=== PATIENT | female | born 1985 | race Caucasian/White ===

== ENCOUNTER 2017-08-14 08:10 | Inpatient (IN) | payer OTHER ==
[~2017-08-14] VITALS: Ht 152.4 cm; Wt 93.4 kg
[2017-08-14] MEDS ORDERED: NACL 0.9% 1,000 ML IV SCH (08:21)
[2017-08-14 08:23] VITALS: BP 116/58
[2017-08-14] MEDS ORDERED: ONDANSETRON 4 MG/2 ML VIAL IVP ONE ×2 (08:25→11:15)
--- NOTE | 2017-08-14 08:40 | NUR ---
PATIENT PRESENTS TO ED WITH C/O MID ABDOMINAL SHARP/BURNING PAIN X YESTERDAY AFTER EATING A HAMBURGER +N/V +CONSTIPATION; PAIN RADIATES TO BACK ADMITS HAD BEEN EATING HIGH FATTY FOODS SEEN HERE AUG 14, SAME COMPLAINT DX GASTRITIS RX OMEPRAZOLE HX---DENIES RX---OMEPRAZOLE .DENIES DIARRHEA; SKIN IS PINK/WARM/DRY; AAOX4 WITH EVEN AND STEADY GAIT; LUNGS CLEAR BL; HR EVEN AND REGULAR; PT DENIES ANY FEVER, CP, SOB, OR COUGH AT THIS TIME; PATIENT STATES PAIN OF 8/10 AT THIS TIME; VSS; PATIENT POSITIONED FOR COMFORT; HOB ELEVATED; BEDRAILS UP X2; BED DOWN. ER MD MADE AWARE OF PT STATUS.
[2017-08-14 08:49] LABS: BASOPHILS # (AUTO) 0.2 K/uL (0.00-0.22); BASOPHILS % (AUTO) 1.4 % (0.0-2.0); EOSINOPHILS # (AUTO) 0.1 K/uL (0-0.4); EOSINOPHILS % (AUTO) 0.5 % (0.0-4.0); HEMATOCRIT 41.8 % (36-48); HEMOGLOBIN 13.7 g/dL (12.0-16.0); LYMPHOCYTES % (AUTO) 8.1 % (20.5-51.1); MEAN CORPUSCULAR HEMOGLOBIN 30 pg (27-31); MEAN CORPUSCULAR HGB CONC 33 g/dL (33-37); MEAN CORPUSCULAR VOLUME 90 fL (80-94); MONOCYTES # (AUTO) 0.7 K/uL (0.8-1.0); MONOCYTES % (AUTO) 5.8 % (1.7-9.3); NEUTROPHILS # (AUTO) 10.8 K/uL (1.8-7.7); NEUTROPHILS % (AUTO) 84.2 % (42.2-75.2); PLATELET COUNT (AUTO) 235 K/uL (140-450); RED BLOOD CELL COUNT(AUTO) 4.63 MIL/uL (4.20-5.40); RED CELL DISTRIBUTION WIDTH 13.5 % (11.6-13.7); WHITE BLOOD COUNT (AUTO) 12.8 K/uL (4.8-10.8)
[2017-08-14 08:58] LABS: ANION GAP 13.2 (8-16); CARBON DIOXIDE 24.7 mmol/L (21-32); CREATININE 0.8 mg/dL (0.6-1.3); POTASSIUM 3.9 mmol/L (3.5-5.1)
[2017-08-14 09:04] LABS: ALBUMIN 3.9 g/dL (3.4-5.0); TOTAL BILIRUBIN 0.6 mg/dL (0.0-1.0)
--- NOTE | 2017-08-14 09:15 | NUR ---
DR HALL AT BEDSIDE UPDATING AAO PT WITH AT BEDSIDE, "FEELING BETTER LESS ABD PAIN 03/15", WILL CONTINUE TO MONITOR
[2017-08-14 09:29] LABS: APPEARANCE,URINE HAZY (CLEAR); BILIRUBIN,URINE NEGATIVE (NEGATIVE); BLOOD, URINE NEGATIVE (NEGATIVE); COLOR,URINE YELLOW (YELLOW); LEUKOCYTE ESTERASE ,URINE NEGATIVE (NEGATIVE); NITRITE, URINE NEGATIVE (NEGATIVE); UGLUCOSE NEGATIVE (NEGATIVE)
[2017-08-14] MEDS ORDERED: NACL 0.9% 1,000 ML IV ONE (09:45)
[2017-08-14] MEDS ORDERED: MORPHINE SULFATE 4 MG/ML SYR IVP ONE (09:45)
[2017-08-14] MEDS ORDERED: KETOROLAC 30 MG/ML VIAL IVP ONE (09:45)
[2017-08-14] MEDS ORDERED: LANS15EC28 PO (10:09)
--- NOTE | 2017-08-14 10:20 | NUR ---
MANAGER CREDIT RISK AT BEDSIDE
--- NOTE | 2017-08-14 10:36 | NUR ---
PT TAKEN OFF THE UNIT FOR CT SCAN VIA WHEEL CHAIR BY BIOLOGICAL SCIENCE AIDE JASON
--- NOTE | 2017-08-14 10:50 | NUR ---
PT BACK FROM CT, PLACED BACK ON MONITOR, WAITING FOR ADMISSION, WILL CONTINUE TO MONITOR
--- NOTE | 2017-08-14 11:00 | NUR ---
RECEIVED REPORT FROM ER NURSE. WILL GET ROOM READY READY AND AWAIT PT'S ARRIVAL.
--- NOTE | 2017-08-14 11:22 | NUR ---
RN UNAVAILABLE FOR REPORT AT THIS TIME
--- NOTE | 2017-08-14 11:33 | NUR ---
Patient will be admitted to care of DR KRAUS. Admited to M/S. Will go to room 112A. Belongings list completed. Report to SKY WILSON.
--- NOTE | 2017-08-14 11:49 | NUR ---
PT INFORMED OF PENDING ADMISSION, AWAITING ADMITTING ORDERS
--- NOTE | 2017-08-14 12:09 | NUR ---
Patient will be admitted to care of DR KRAUS. Admited to M/S. Will go to room 112A. Belongings list completed. Report to SKY WILSON.
[2017-08-14] MEDS ORDERED: MORPHINE SULFATE 4 MG/ML SYR IVP PRN (12:10)
[2017-08-14] MEDS ORDERED: LORazepam 2 MG/ML VIAL IVP PRN (12:10)
--- NOTE | 2017-08-14 12:10 | NUR ---
PT ARRIVED WITH 2 ER NURSES. PT IS AMBULATORY. AMBULATED FROM GURNEY TO BED. PT IS AWAKE AND ORIENTED. I INTRODUCED MYSELF AND UPDATE THE BOARD. PT IS ACCOMPANIED BY SPOUSE. ADMINISTERED NEW ID BAND, ALLERGY BAND. ADVISED PT SHE IS NPO AT THIS TIME. DENIES PAIN. V/S WITHIN NORMAL LIMITS. IV ON R AC 20G NS AT 250ML. PER ER NURSE, THIS IS THE SECOND BAG. PT IS THIRSTY. OFFERED HER SOME ICE CHIPS. LAST BM WAS TODAY. CT SHOWED CHOLELITHIASIS. LIPASE AND WBC ELEVATED. WILL AWAIT ORDERS. WILL START ADMISSION.
[2017-08-14 12:30] VITALS: BP 114/71
[2017-08-14] MEDS: DEXT 5% /NACL 0.9% 1,000 ML IV SCH ×2 (13:27→22:10)
--- NOTE | 2017-08-14 14:16 | NUR ---
CM NOTE INITIAL REVIEW FAXED TO [facility] [phone] ANEL AMINA # [phone]
[2017-08-14] MEDS: ONDANSETRON 4 MG/2 ML VIAL IVP PRN (15:04)
--- NOTE | 2017-08-14 15:05 | NUR ---
PT WAS NAUSEATED. VOMITED. ADMINISTERED ZOFRAN. PT TOLERATED WELL. WILL CONTINUE TO MONITOR PT.
[2017-08-14 16:00] VITALS: BP 112/75
--- NOTE | 2017-08-14 16:00 | NUR ---
V/S WITHIN NORMAL RANGE. NO MORE NAUSEA. NO MORE VOMITING. PT WANTS TO SLEEP. WILL CONTINUE TO MONITOR PT.
--- NOTE | 2017-08-14 17:34 | NUR ---
PT SLEEPING SOUNDLY. NO SIGNS OF DISTRESS. WILL CONTINUE TO MONITOR PT.
--- NOTE | 2017-08-14 18:00 | NUR ---
DR. GOMEZ CAME BY AND SAW PT. PT TO HAVE SURGERY TOMORROW MORNING AT 0730. CONSENT SIGNED AND IN CHART. ORDERED FULL LIQ DIET, NPO AFTER MIDNIGHT.
--- NOTE | 2017-08-14 18:20 | NUR ---
STARTED A NEW IV ON R HAND 22G. 1 ATTEMPT. PT TOLERATED WELL.
--- NOTE | 2017-08-14 18:56 | NUR ---
PT EATING HER FULL LIQUID DIET TRAY. FAMILY AT BEDSIDE. WILL CONTINUE TO MONITOR PT.
--- NOTE | 2017-08-14 19:10 | NUR ---
ENDORSED PT TO THE MONORAIL HELPER NURSE AT BEDSIDE FOR CONTINUITY OF CARE. PT IS VISITING WITH FAMILY. PT IN STABLE CONDITION.
--- NOTE | 2017-08-14 19:11 | NUR ---
RECEIVED BEDSIDE REPORT FROM DAY SHIFT NURSE, KATIE RN, PT RESTING, NO DISTRESS NOTED, AAOX4, IV TO THE R HAND 22G RUNNING D5NS @100ML/HR, PT REPORTED HAVING NO PAIN AND NAUSEA AT THIS MOMENT, FAMILY BY BEDSIDE, ALL SAFETY PRECAUTION MET, INITIAL ASSESSMENT DONE, PT RESTING, CALL LIGHT WITHIN REACH, WILL CONTINUE TO MONITOR.
--- NOTE | 2017-08-14 20:45 | NUR ---
WALKED PT TO THE RESTROOM AND BACK TO BED, PT TOLERATED WELL, REPORTED HAVING NO PAIN AND NAUSEA CURRENTLY. CALL LIGHT WITHIN REACH, WILL CONTINUE TO MONITOR.
[2017-08-15] VITALS (9 sets, daily range): BP systolic 96–115; BP diastolic 53–70
--- NOTE | 2017-08-15 00:05 | NUR ---
PT SLEEPING, NO DISTRESS NOTED, V/S TAKEN, PT STABLE, CALL LIGHT WITHIN REACH, WILL CONTINUE TO MONITOR.
[2017-08-15] MEDS: DEXT 5% /NACL 0.9% 1,000 ML IV SCH ×2 (01:45→08:10)
--- NOTE | 2017-08-15 02:00 | NUR ---
PT AWAKE. MADE AWARE OF THE NPO STATUS FOR SURGERY THIS AM . VERBALIZED UNDERSTANDING.
--- NOTE | 2017-08-15 05:10 | NUR ---
ASSIST PT TO SHOWER, PT TOLERATED WELL, PT BACK IN ROOM RESTING, NO DISTRESS NOTED, BRUSHING TEETH, CALL LIGHT WITHIN REACH, WILL CONTINUE TO MONITOR.
[2017-08-15 06:40] LABS: BASOPHILS # (AUTO) 0.2 K/uL (0.00-0.22); BASOPHILS % (AUTO) 2.8 % (0.0-2.0); EOSINOPHILS # (AUTO) 0.1 K/uL (0-0.4); EOSINOPHILS % (AUTO) 1.1 % (0.0-4.0); HEMATOCRIT 35.7 % (36-48); HEMOGLOBIN 11.8 g/dL (12.0-16.0); LYMPHOCYTES # (AUTO) 1.9 K/uL (2.5-16.5); LYMPHOCYTES % (AUTO) 27.2 % (20.5-51.1); MEAN CORPUSCULAR HEMOGLOBIN 30 pg (27-31); MEAN CORPUSCULAR HGB CONC 33 g/dL (33-37); MEAN CORPUSCULAR VOLUME 91 fL (80-94); MONOCYTES # (AUTO) 0.5 K/uL (0.8-1.0); MONOCYTES % (AUTO) 6.5 % (1.7-9.3); NEUTROPHILS # (AUTO) 4.3 K/uL (1.8-7.7); NEUTROPHILS % (AUTO) 62.4 % (42.2-75.2); PLATELET COUNT (AUTO) 196 K/uL (140-450); RED BLOOD CELL COUNT(AUTO) 3.91 MIL/uL (4.20-5.40); RED CELL DISTRIBUTION WIDTH 13.5 % (11.6-13.7)
[2017-08-15 06:59] LABS: ALBUMIN 3.1 g/dL (3.4-5.0); ANION GAP 10.7 (8-16); CREATININE 0.6 mg/dL (0.6-1.3); MAGNESIUM 1.8 mg/dL (1.8-2.4); POTASSIUM 3.7 mmol/L (3.5-5.1); TOTAL BILIRUBIN 0.6 mg/dL (0.0-1.0)
[2017-08-15 07:03] LABS: PROTHROMBIN TIME 11.1 secs (10.8-13.4)
--- NOTE | 2017-08-15 07:07 | NUR ---
PT PICKED UP BY WINDY TO OR, PT STABLE, NO DISTRESS NOTED.
--- NOTE | 2017-08-15 07:10 | NUR ---
ENDORSED PT TO DAY SHIFT NURSE BY BEDSIDE, PT PICKED UP TO GO TO OR. PT STABLE NO DISTRESS NOTED.
--- NOTE | 2017-08-15 07:11 | NUR ---
RECEIVE REPORT FROM THE COMPLAINTS COORDINATOR NURSE FOR CONTINUITY OF CARE. PT IS ALREADY OFF UNIT FOR PROCEDURE. WILL AWAIT HER RETURN.
[2017-08-15] MEDS ORDERED: DEXAMETHASONE 4 MG/ML VIAL ONE (07:18)
[2017-08-15] MEDS ORDERED: ROCURONIUM 50 MG/5 ML VIAL IV ONE (07:18)
[2017-08-15] MEDS ORDERED: SUCCINYLCHOLINE CHLORIDE 200 MG/10 ML VIAL IVP ONE (07:18)
[2017-08-15] MEDS ORDERED: LIDOCAINE 2% 100 MG/5 ML SYR IVP ONE (07:18)
[2017-08-15] MEDS ORDERED: ONDANSETRON 4 MG/2 ML VIAL ONE ×2 (07:18→09:44)
[2017-08-15] MEDS ORDERED: PROPOFOL 200 MG/20 ML VIAL IV ONE (07:18)
[2017-08-15] MEDS ORDERED: DESFLURANE 240 ML BTL INH ONE (07:18)
[2017-08-15] MEDS ORDERED: MIDAZOLAM 2 MG/2 ML VIAL ONE (07:33)
[2017-08-15] MEDS ORDERED: fentaNYL 0.05 MG/ML VIAL ONE (07:34)
[2017-08-15] MEDS ORDERED: ceFAZolin 1,000 MG VIAL ONE (07:37)
[2017-08-15] MEDS ORDERED: BUPIVACAINE-MPF 0.25% 30 ML VIAL INJ ONE (07:48)
[2017-08-15] MEDS ORDERED: ONDANSETRON 4 MG/2 ML VIAL IVP PRN (07:55)
[2017-08-15] MEDS ORDERED: ENOXAPARIN 40 MG/0.4 ML SYR SUBQ SCH (09:00)
[2017-08-15] MEDS: HYDROmorphone 1 MG/ML AMP IVP PRN ×4 (09:05→09:35)
--- NOTE | 2017-08-15 09:05 | NUR ---
PATIENT HAS BEEN SCREENED AND CATEGORIZED HIGH NUTRITION RISK. PATIENT WILL BE SEEN WITHIN 1-2 DAYS OF ADMISSION. 08/15/17-08/16/[address]
[2017-08-15] MEDS ORDERED: HYDROmorphone PFS 2 MG/ML SYR ONE (09:13)
--- NOTE | 2017-08-15 09:45 | NUR ---
PT ARRIVED ON THE UNIT BACK FROM HER PROCEDURE. PER O/R NURSE, PT DID WELL. MARY PANDYA, 4 INCISIONS ON ABD. GOT ALL HER PAIN MEDS AT 0930 INCLUDING NAUSEA MED. PAIN IS TOLERABLE BUT STILL NAUSEATED. PAGED DR KRAUS ABOUT ANOTHER NAUSEA MED. WILL START POST OP V/S.
--- NOTE | 2017-08-15 10:09 | NUR ---
CM NOTE CONCURRENT REVIEW FAXED TO [facility] [phone] CM MAYRA # [phone]
[2017-08-15] MEDS ORDERED: METOCLOPRAMIDE 10 MG/2 ML INJ VIAL IVP PRN (10:55)
--- NOTE | 2017-08-15 11:30 | NUR ---
PT FAMILY VISITING. PT STILL NAUSEATED. ADMINISTERED REGLAN THAT DR. KRAUS HAD ORDERED. REQUESTED PAIN MED WELL. GAVE MORPHINE. PT TOLERATED WELL. WILL CONTINUE TO MONITOR PT.
--- NOTE | 2017-08-15 12:12 | NUR ---
AMBULATED TO THE BATHROOM. VOIDED. BECAME NAUSEATED. VOMITED. PT BACK IN BED. SPOUSE AT BEDSIDE. LUNCH IS HERE. WILL TRY SOME CRACKERS AND JUICE. WILL CONTINUE TO MONITOR PT.
[2017-08-15] MEDS ORDERED: ONDA4TAB PO (14:07)
[2017-08-15] MEDS ORDERED: ACET-2869 PO (15:07)
--- NOTE | 2017-08-15 15:37 | NUR ---
PT RESTING COMFORTABLY. NO SIGNS OF DISTRESS. WILL CONTINUE TO MONITOR PT.
[2017-08-15] MEDS: ONDANSETRON 4 MG/2 ML VIAL IVP PRN (16:18)
--- NOTE | 2017-08-15 17:20 | NUR ---
DC INSTRUCTIONS GIVEN. PT VERBALIZED UNDERSTANDING. REMOVED IV, CANNULA INTACT. NO BLEEDING NOTED. REMOVED ID BANDS. CHECKED THE DRESSINGS ON THE INCISIONAL SITE, 4 IN ALL. NO BLEEDING OR DRAINAGE NOTED. IT IS DRY AND INTACT. NO PICTURES TAKEN D/T BEING LESS THAN 24 HOURS. WOUND CARE INSTRUCTIONS GIVEN. PT TO GET DRESSED AND GATHER HER PERSONAL BELONGINGS. WILL LET ME KNOW WHEN SHE IS READY TO LEAVE. WILL HAVE WHEELCHAIR READY.
--- NOTE | 2017-08-15 17:40 | NUR ---
WHEELED PT OUT TO THE LOBBY TO THE CAR. WAITING IN THE CAR. PT IN STABLE CONDITION.
== END 2017-08-15 17:40 | disposition home or self-care (01) | DRG 263 ==
LOC: MED 08:10 → MTU 12:11
PROVIDERS: ADMIT Hospitalist; ATTEND Hospitalist
PROC: 0FT44ZZ Resection of Gallbladder, Percutaneous Endoscopic Approach (ICD-10-PCS; principal; 2017-08-15 07:30)
DX: K85.10 Biliary acute pancreatitis without necrosis or infection (principal); Z68.41 Body mass index [BMI] 40.0-44.9, adult; K80.20 Calculus of gallbladder without cholecystitis without obstruction; E66.01 Morbid (severe) obesity due to excess calories; E78.5 Hyperlipidemia, unspecified; I25.10 Atherosclerotic heart disease of native coronary artery without angina pectoris; Z88.5 Allergy status to narcotic agent; Z88.6 Allergy status to analgesic agent; Z98.51 Tubal ligation status
CPT/HCPCS: 36415; 76705; 80053; 81003; 82374; 83690; 83735; 84703; 85025; 85610; 85730; 86886; 86900; 86901; 87081; 93005; 96361; 96374; 96375; 96376; 99285; J0330; J0690; J1100; J1170; J1885; J2001; J2250; J2270; J2405; J2704; J2765; J3010; J3490; J7030; J7042; Q0092; Q9967

== ENCOUNTER 2018-09-14 16:28 | Emergency (ER) | payer OTHER ==
[~2018-09-14] VITALS: Ht 160 cm; Wt 93.0 kg
[~2018-09-14 16:28] MED LIST: HYDR-5122 PO; ONDA4TAB PO
[2018-09-14 16:36] VITALS: BP 127/78
[2018-09-14] MEDS ORDERED: IBUPROFEN 600 MG TAB PO ONE (17:30)
[2018-09-14 19:10] VITALS: BP 122/76
== END 2018-09-14 19:34 | disposition home or self-care (01) ==
LOC: MED 16:28
DX: S86.811A Strain of other muscle(s) and tendon(s) at lower leg level, right leg, initial encounter (principal); Z88.5 Allergy status to narcotic agent; Z79.899 Other long term (current) drug therapy; W19.XXXA Unspecified fall, initial encounter; Y93.89 Activity, other specified; Y92.480 Sidewalk as the place of occurrence of the external cause; Y99.0 Civilian activity done for income or pay
CPT/HCPCS: 29505; 73560; 99283; Q0092